=== PATIENT | female | born 1945 | race Caucasian/White ===

== ENCOUNTER 2025-03-30 12:49 | Outpatient (REF) | payer MEDICARE, SELFPAY ==
--- NOTE | ~2025-03-30 | XR_ITS ---
Examination: CR Xr Lumbar Spine 4v Min Prior: None TECHNIQUE: AP, and lateral: Flexion, neutral, and extension view x-rays of the lumbar spine. FINDINGS: Moderate vascular calcifications are visible in the abdominal aorta and common iliac arteries. There is diffuse osteopenia. There is focal sclerotic lesion in the left S3 segment, likely a bone island. There is 33 degrees dextroscoliosis. T12-L1: Mild disc space narrowing and endplate osteophytes are noted. L1-L2: There is mild to moderate disc space narrowing with endplate osteophytes. L2-L3: There is severe disc space narrowing with endplate sclerosis and osteophytes. Facet joints are sclerotic and narrowed. L3-L4: There is grade 1 retrolisthesis without clear enhancement. There are endplate osteophytes. There is decreased retrolisthesis during extension. However, the underlying scoliosis moderately limits evaluation. L4-L5: There is mild facet sclerosis. L5-S1: There is facet sclerosis and osteophytes. XR/XR lumbar spine 4V min IMPRESSION: Moderate dextroscoliosis and degenerative disc disease with facet osteoarthritis. L3-4 demonstrates grade 1 retrolisthesis with possible instability. Comparison between flexion and extension is limited due to the patient's moderate scoliosis. Electronically signed by: Jian Sigala MD 03/30/2025 02:10 PM [facility]
--- OUTSIDE RECORDS SUMMARY | 2025-03-30 21:04 | XMS_ITS | Encounter Summary ---
Author Organization [facility] Address [address] [place] [address] Phone Care Team Providers Care Men'S Leather Dress Belt Maker Name Role Phone Jose Glover MD Primary Care Provider [phone] Encounter Details Date Type Department Care Team (Late st Contact Info) Description 02/17/2017 Ancillary Orders [facility] Orthopedics & Sports Medicine [address] [place] [address] Elsa Kirkland PA-C [address] [place] [address] Orthopedics & Sports Medicine, [place] [address] Social History Tobacco Use Types Packs/Day Years Used Date Smoking Tobacco: Never Assessed Comments Unknown Sex and Gender Information Value Date Recorded Sex Assigned at Not on file Legal Sex Female 7:33 PM EST Gender Identity Not on file Sexual Orientation Not on file documented as of this encounter Plan of Treatment Upcoming Encounters Date Type Department Care Team (Late st Contact Info) Description 10/18/2024 Procedure Pass [address] [address] 08/31/2025 11:00 AM EDT Appointment [address] [address] Jose Glover MD [address] [place] [address] documented as of this encounter Visit Diagnoses Not on filedocumented in this encounter Care Teams Men'S Leather Dress Belt Maker Relationship Specialty Start Date End Date Jose Glover MD [email or web address] PCP - General 10/19/13 documented as of this encounter Additional Source Comments The information contained in this document represents components of the legal health record. It is not the complete legal health record.[facility]
--- OUTSIDE RECORDS SUMMARY | 2025-03-30 21:04 | XMS_ITS | Encounter Summary ---
Author Organization [facility] Address [address] [place] [address] Phone Care Team Providers Care Retread Technician Name Role Phone Jose Glover MD Primary Care Provider [phone] Encounter Details Date Type Department Care Team (Late Contact Info) Description 09/22/2017 Ancillary Orders Virtual Department [address] [place] [address] Jose Glover MD [address] [place] [address] Breast screening Social History Tobacco Use Types Packs/Day Years Used Date Smoking Tobacco: Former Cigarettes 1 1 963 - 1987 Smokeless Tobacco: Never Alcohol Use Standard Drinks/Week Comments No 0 (1 standard drink = 0.6 oz pur e alcohol) Comments Unknown Sex and Gender Information Value Date Recorded Sex Assigned at Not on file Legal Sex Female 7:33 PM EST Gender Identity Not on file Sexual Orientation Not on file documented as of this encounter Plan of Treatment Upcoming Encounters Date Type Department Care Team (Late Contact Info) Description 10/18/2024 Procedure Pass [address] [address] 08/31/2025 11:00 AM EDT Appointment [address] [address] Jose Glover MD [address] [place] [address] [phone] documented as of this encounter Results * BI MAMMOGRAM SCREENING WITH TOMOSYNTHESIS WITH CAD (BILATERAL) (10/23/2017 12:58 PM EDT) Anatomical Region Laterality Modality Breast Left, Breast Right, Breast Bilateral Bila teral Mammography 10/23/2017 1:05 PM EDT Impressions 10/23/2017 1:08 PM EDT Stable appearance relative to prior imaging. No findings suggestive of malignancy are seen. BI-RADS CATEGORY: 2 - Benign finding. DENSITY: There are scattered fibroglandular densities. POS - [id number] Narrative 10/23/2017 1:08 PM EDT Full-field digital mammography is obtained with computer-aided detection. Comparison with prior imaging from 10/07/2016 is made with older imaging dating back as far as 02/15/2011 also reviewed. There is scattered fibroglandular density evident in the breasts. In addition to 2-D C view imaging, tomosynthesis images are obtained in two projections of each breast. There is a small intramammary lymph node in the upper outer left breast. This is unchanged.. No dominant soft tissue mass of concern, suspicious cluster of calcifications, significant interval skin changes, or architectural distortion is identified. Procedure Note Wilder Kimball MD - 10/23/2017 Full-field digital mammography is obtained with computer-aided detection.Comparison with prior imaging from 10/07/2016 is made with older imagingdating back as far as 02/15/2011 also reviewed. There is scattered fibroglandular density evident in the breasts. Inaddition to 2-D C view imaging, tomosynthesis images are obtained in twoprojections of each breast. There is a small intramammary lymph node in the upper outer left breast.This is unchanged.. No dominant soft tissue mass of concern, suspiciouscluster of calcifications, significant interval skin changes, orarchitectural distortion is identified. IMPRESSION: Stable appearance relative to prior imaging. No findings suggestive ofmalignancy are seen. BI-RADS CATEGORY: 2 - Benign finding. DENSITY: There are scattered fibroglandular densities. POS - [id number] Jose Glover MD IMG MG EXAMS Final Result documented in this encounter Visit Diagnoses Diagnosis Breast screening Breast screening, unspecified Breast screening Breast screening, unspecified documented in this encounter Care Teams Retread Technician Relationship Specialty Start Date End Date Jose Glover MD PCP - General 10/19/13 documented as of this encounter Additional Source Comments The information contained in this document represents components of the legal health record. It is not the complete legal health record.[facility]
--- OUTSIDE RECORDS SUMMARY | 2025-03-30 21:04 | XMS_ITS | Encounter Summary ---
Author Organization [facility] Address [address] [place] [address] Phone Care Team Providers Care Welder Production Line Arc Name Role Phone Jose Glover MD Primary Care Provider [phone] Encounter Details Date Type Department Care Team (Late st Contact Info) Description 02/17/2017 Ancillary Orders [facility] Orthopedics & Sports Medicine [address] [place] [address] [address] Mor[address] PA-C [address] [place] [address] Orthopedics & Sports Medicine, [facility] [place] [address] [email or web address] Social History Tobacco Use Types Packs/Day Years [...] st Contact Info) Description 10/18/2024 Procedure Pass [address] [address] 08/31/2025 11:00 AM EDT Appointment [address] [address] Jose Glover MD [address] [place] [address] documented as of this encounter Visit Diagnoses Not on filedocumented in this encounter Care Teams Welder Production Line Arc Relationship Specialty Start Date End Date Jose Glover MD [email or web address] PCP - General 10/19/13 documented as of this encounter Additional Source Comments The information contained in this document represents components of the legal health record. It is not the complete legal health record.[facility]
--- OUTSIDE RECORDS SUMMARY | 2025-03-30 21:04 | XMS_ITS | Encounter Summary ---
Author Organization [facility] Address [address] [place] [address] Phone Care Team Providers Care Business Development Specialist Name Role Phone Jose Glover MD Primary Care Provider [phone] Encounter Details Date Type Department Care Team (Late Contact Info) Description 02/17/2017 Ancillary Orders [address] [address] [address] Morillo PA-C [address] [place] [address] Orthopedics & Sports Medicine, [place] [address] [email or web address] Social History Tobacco Use Types Packs/Day Years [...] st Contact Info) Description 10/18/2024 Procedure Pass [address] [address] 08/31/2025 11:00 AM EDT Appointment [address] [address] Jose Glover MD [address] [place] [address] [email or web address] documented as of this encounter Visit Diagnoses Not on filedocumented in this encounter Care Teams Business Development Specialist Relationship Specialty Start Date End Date Jose Glover MD [email or web address] PCP - General 10/19/13 documented as of this encounter Additional Source Comments The information contained in this document represents components of the legal health record. It is not the complete legal health record.[facility]
--- OUTSIDE RECORDS SUMMARY | 2025-03-30 21:04 | XMS_ITS | Encounter Summary ---
Author Organization [facility] Address [address] [place] [address] Phone Care Team Providers Care Facilities Operator Name Role Phone Jose Glover MD Primary Care Provider Encounter Details Date Type Department Care Team (Late Contact Info) Description 02/17/2017 Ancillary Orders [address] [id number] Elsa Kirkland PA-C [address] [place] [address] Orthopedics & Sports Medicine, [facility] [place] [address] Right wrist pain Social History Tobacco Use Types Packs/Day Years [...] st Contact Info) Description 10/18/2024 Procedure Pass [address] [address] 08/31/2025 11:00 AM EDT Appointment [address] [address] Jose Glover MD [address] [place] [address] documented as of this encounter Results * XR WRIST 2 VIEWS (RIGHT) (02/18/2017 10:18 AM EDT) Narrative Leticia Gregory - 02/18/2017 10:19 AM EDT This image report has been auto-finalized and has not been read by a Radiologist. Interpretation has been included in the provider encounter note for this date of service. Elsa Kirkland PA-C IMG XR UPPER EXTREMI TY Final Result documented in this encounter Visit Diagnoses Diagnosis Right wrist pain Pain in joint, forearm Right wrist pain Pain in joint, forearm documented in this encounter Care Teams Facilities Operator Relationship Specialty Start Date End Date Jose Glover MD [email or web address] PCP - General 10/19/13 documented as of this encounter Additional Source Comments The information contained in this document represents components of the legal health record. It is not the complete legal health record.[facility]
--- OUTSIDE RECORDS SUMMARY | 2025-03-30 21:05 | XMS_ITS | Encounter Summary ---
Author Organization [facility] Address [address] [place] [address] Phone Care Team Providers Care Child Development Assistant Name Role Phone Jose Glover MD Primary Care Provider [phone] Encounter Details Date Type Department Care Team (Latest Contact Info) Description 10/18/2024 Transcribe Orders Virtual Department [address] [place] [address] Jose Glover MD [address] [place] [address] [email or web address] Breast screening (Primary Dx) Social History Tobacco Use Types Packs/Day Years Used Date Smoking Tobacco: Former Cigarettes 963 - 1987 Smokeless Tobacco: Never Alcohol Use Standard Drinks/Week Comments No 0 (1 standard drink = 0.6 oz pur e alcohol) Education Answer Date Recorded Are you interested in more education? Not on taniya e 08/15/2022 Are you concerned about learning? Not on file 08/15/2022 No 08/15/2022 No 08/15/2022 Digital Access Answer Date Recorded No 09/16/2022 No 09/16/2022 Reliable internet access at home? Not on file 09/16/2022 Device with a working camera? Not on file Comments No Sex and Gender Information Value Date Recorded Sex Assigned at Not on file Legal Sex Female 7:33 PM EST Gender Identity Not on file Sexual Orientation Not on file documented as of this encounter Plan of Treatment Upcoming Encounters Date Type Department Care Team (Late st Contact Info) Description 10/18/2024 Procedure Pass [facility], [address] [address] 08/31/2025 11:00 AM EDT Appointment [address] [address] Jose Glover MD [address] [place] [phone] [email or web address] Scheduled Orders Name Type Priority Associated Diagnoses Orde r Schedule Mammogram Screening (Bilateral) Imaging Routine Breast screening Expected: 10/18/2024, Expires: 10/18/2026 documented as of this encounter Visit Diagnoses Diagnosis Breast screening- Primary Breast screening, unspecified documented in this encounter Care Teams Child Development Assistant Relationship Specialty Start Date End Date Jose Glover MD PCP - General 10/19/13 documented as of this encounter Additional Source Comments The information contained in this document represents components of the legal health record. It is not the complete legal health record.[facility]
--- OUTSIDE RECORDS SUMMARY | 2025-03-30 21:05 | XMS_ITS | Encounter Summary ---
Author Organization [facility] Address [address] [place] [address] Phone Care Team Providers Care Machine Stripper Name Role Phone Jose Glover MD Primary Care Provider [phone] Encounter Details Date Type Department Care Team (Late Contact Info) Description 01/03/2025 Transcribe Orders [facility] Department [address] [place] [address] Jose Glover MD [address] [place] [phone] [email or web address] Social History Tobacco Use Types Packs/Day Years Used Date Smoking Tobacco: Former Cigarettes 1 15 05 963 - 1987 Smokeless Tobacco: Never Alcohol [...] (Late Contact Info) Description 10/18/2024 Procedure Pass [facility], Mammography- [address] [address] 08/31/2025 11:00 AM EDT Appointment [facility], Mammography- [address] [address] Jose Glover MD [address] [place] [phone] documented as of this encounter Visit Diagnoses Not on filedocumented in this encounter Care Teams Machine Stripper Relationship Specialty Start Date End Date Jose Glover MD [email or web address] PCP - General 10/19/13 documented as of this encounter Additional Source Comments The information contained in this document represents components of the legal health record. It is not the complete legal health record.[facility]
--- OUTSIDE RECORDS SUMMARY | 2025-03-30 21:05 | XMS_ITS | Encounter Summary ---
Author Organization [facility] Address [address] [place] [address] Phone Care Team Providers Care Remote Sensing Advisor Name Role Phone Jose Glover MD Primary Care Provider Encounter Details Date Type Department Care Team (Late Contact Info) Description 09/21/2018 Ancillary Orders Virtual Department [address] [place] [address] Jose Glover MD [address] [place] [address] Breast screening Social History Tobacco Use Types Packs/Day Years Used Date Smoking Tobacco: Former Cigarettes 1 1 963 - 1987 Smokeless Tobacco: Never Alcohol Use Standard Drinks/Week Comments No 0 (1 standard drink = 0.6 oz pur e alcohol) Comments No Sex and Gender Information Value Date Recorded Sex Assigned at Not on file Legal Sex Female 7:33 PM EST Gender Identity Not on file Sexual Orientation Not on file documented as of this encounter Plan of Treatment Upcoming Encounters Date Type Department Care Team (Late Contact Info) Description 10/18/2024 Procedure Pass [address] [address] 08/31/2025 11:00 AM EDT Appointment [address] [address] Jose Glover MD [address] [place] [address] [phone] documented as of this encounter Results * BI MAMMOGRAM SCREENING WITH TOMOSYNTHESIS WITH CAD (BILATERAL) (10/27/2018 11:09 AM EDT) Anatomical Region Laterality Modality Breast Left, Breast Right, Breast Bilateral Bila teral Mammography 10/27/2018 4:27 PM EDT Impressions 10/27/2018 4:35 PM EDT BILATERAL BREASTS: Negative, no evidence of malignancy. Normal interval follow- up is recommended in 12 months. Bi-RADS: BI-RADS CATEGORY: 1 - Negative. DENSITY: There are scattered fibroglandular densities. POS - [id number] Narrative 10/27/2018 4:35 PM EDT STUDY: Bilateral screening mammography with tomosynthesis and CAD TECHNIQUE: Bilateral full-field digital screening mammography is obtained and read in conjunction with computer-aided detection. Tomosynthesis as well as 2-D C view imaging were obtained. COMPARISON: Comparison made to multiple prior, most recent October 23, 2017, and most remote February 19, 2012. BREAST COMPOSITION: There are scattered areas of fibroglandular density BILATERAL BREASTS: No significant masses, calcifications or other abnormalities are seen. Procedure Note Roseann Jackson MD - 10/27/2018 STUDY: Bilateral screening mammography with tomosynthesis and CAD TECHNIQUE: Bilateral full-field digital screening mammography is obtainedand read in conjunction with computer-aided detection. Tomosynthesis aswell as 2-D C view imaging were obtained. COMPARISON: Comparison made to multiple prior, most recent October 23, 2017,and most remote February 19, 2012. BREAST COMPOSITION: There are scattered areas of fibroglandulardensity BILATERAL BREASTS: No significant masses, calcifications or otherabnormalities are seen. IMPRESSION: BILATERAL BREASTS: Negative, no evidence of malignancy. Normal intervalfollow-up is recommended in 12 months. Bi-RADS: BI-RADS CATEGORY: 1 - Negative. DENSITY: There are scattered fibroglandular densities. POS - [id number] Jose Glover MD IMG MG EXAMS Final Result documented in this encounter Visit Diagnoses Diagnosis Breast screening Breast screening, unspecified Breast screening Breast screening, unspecified documented in this encounter Care Teams Remote Sensing Advisor Relationship Specialty Start Date End Date Jose Glover MD [email or web address] PCP - General 10/19/13 documented as of this encounter Additional Source Comments The information contained in this document represents components of the legal health record. It is not the complete legal health record.[facility]
--- OUTSIDE RECORDS SUMMARY | 2025-03-30 21:05 | XMS_ITS | Clinical Summary ---
Author Organization [facility] Address [address] [place] [address] Phone Care Team Providers Care Chief Contract Officer Name Role Phone Jose Glover MD Primary Care Provider [phone] Allergies Active Allergy Reactions Criticality Noted Date Comments Hydroxychloroquine Thrombocytopenia High 02/18/2017 Medications sulfaSALAzine (AZULFIDINE) 500 mg tablet Take 2 twice aday Active folic acid 5 mg/mL injection Acti ve hydroCHLOROthia zide (HYDRODIURIL) 12.5 MG tablet Activ e lisinopril (PRINIVIL,ZESTR IL) 2.5 MG tablet Active methotrexate 2.5 MG Oral tablet Active leflunomide (ARAVA) 10 MG tabletIndicatio ns:rheumatoid arthritis Take 10 mg by mouth daily. Indications: Rheumatoid Arthritis Active PREDNISONE ORAL Take by mouth. Active Active Problems Problem Noted Date Diagnosed Date Rheumatoid arthritis 02/07/2012 Overview (06/11/2014): Rheumatoid arthritis Neutropenia 02/07/2012 Overview (06/11/2014): Neutropenia Osteopenia 02/07/2012 Overview (06/11/2014): Osteopenia Encounters Date Type Department Care Team Description 01/10/2025 11:00 AM EDT Office Visit [facility] [address] [place] [address] [phone] Gustavo Paulson MD Goldberg, Jessica Beth, PT Weakness (Primary Dx) 01/03/2025 1:48 PM EDT - 01/03/2025 11:59 PM EDT Hospital Encounter [facility], X-Ray - [facility] [address] [place] [address] Gustavo Paulson MD Discharge Disposition: Home or Self Care 01/03/2025 11:00 AM EDT Office Visit [facility] [address] [place] [address] Gustavo Paulson MD Goldberg, Mami Gibbons, PT Weakness (Primary Dx) 01/03/2025 Transcribe Orders Virtual Department [address] [place] [address] Gustavo Paulson MD Right hip pain (Primary Dx); Other rheumatoid arthritis with rheumatoid factor of multiple sites 01/03/2025 Transcribe Orders Virtual Department [address] [place] [address] Gustavo Paulson MD Right hip pain (Primary Dx); Other rheumatoid arthritis with rheumatoid factor of multiple sites 01/03/2025 Transcribe Orders Virtual Department [address] [place] [address] Jose Glover MD from Last 3 Months Family History Medical History Relation Comments Sudden cardiac Mother Breast cancer Paternal Aunt Relation Status Comments Brother Alive Father Mother Paternal Aunt Social History Tobacco Use Types Packs/Day Years Used Date Smoking Tobacco: Former Cigarettes 1 25 1 - 1987 Smokeless Tobacco: Never Tobacco Cessation:Counseling Given: No Alcohol Use Standard Drinks/Week Comments No 0 [...] on file Sexual Orientation Not on file Last Filed Vital Signs Vital Sign Reading Time Taken Comments Blood Pressure 156/72 02/07/2012 2:44 PM EDT Pulse 83 02/07/2012 2:44 PM EDT Temperature 37 C (98.6 F) 02/07/2012 2:44 PM EDT Respiratory Rate 16 02/07/2012 2:44 PM EDT Oxygen Saturation - - Inhaled Oxygen Concentration - - Weight 78 kg (172 lb) 03/11/2017 10:00 AM EST Height 177.8 cm (5' 10 ) 03/11/2017 10:00 AM EST Body Mass Index 24.68 03/11/2017 10:00 AM EST Plan of Treatment Upcoming Encounters Date Type Department Care Team (Late st Contact Info) Description 10/18/2024 Procedure Pass [address] [address] 08/31/2025 11:00 AM EDT Appointment [address] [address] Jose Glover MD [address] [place] [phone] [email or web address] Health Maintenance Due Date Last Done Comments CREATININE LEVEL 1944 LIPID PANEL 1944 POTASSIUM LEVEL 1944 DEPRESSION SCREENING 1956 SMOKING Hx and SMOKELESS TOBACCO SCREENING 1957 ZOSTER VACCINES (1 of 2) 12/30/1963 OSTEOPOROSIS SCREENING INITIAL (ONE-TIME) 2009 RSV VACCINE (1 - 1-dose 75+ series) 12/30/2019 COVID-19 VACCINE (3 - Pfizer risk series) 02/05/2021 01/08/2021, 12/18/2020 Adult Td,Tdap Booster 09/15/2024 09/15/2014 INFLUENZA VACCINE (#1) 2024 , 02/01/2020, 02/15/2019, Additional history exists PNEUMOCOCCAL VACCINES (50+ years) Completed 10/29/2016, 02/17/2015 HEPATITIS A VACCINES Aged Out No long er eligible based on patient's age to complete this topic HIB VACCINES Aged Out No longer eligi ble based on patient's age to complete this topic MENINGOCOCCAL VACCINES (ACWY) Aged Out No longer eligible based on patient's age to complete this topic MENINGOCOCCAL VACCINES (B) Aged Out N o longer eligible based on patient's age to complete this topic Medical Devices Not on file Procedures Procedure Name Priority Date/Time Associated Diagnosis Comments XR HIP 2 VW RIGHT PLUS PELVIS Routine 01/03/2025 2:13 PM EDT Right hip pain Other rheumatoid arthritis with rheumatoid factor of multiple sites from Last 3 Months Results * XR HIP 2 VW RIGHT PLUS PELVIS (01/03/2025 2:13 PM EDT) Anatomical Region Laterality Modality Hip Right Computed Radiogr aphy 01/04/2025 9:36 AM EDT Impressions 01/04/2025 9:37 AM EDT Mild bilateral hip degenerative changes. Dedicated views of the right hip demonstrate mild osteophyte formation and mild joint space narrowing. No evidence of acute, displaced fracture or dislocation. Mild degenerative changes elsewhere within the pelvis. Small ill-defined sclerotic focus within the left central sacrum. Prominent degenerative changes within the lower lumbar spine. Narrative 01/04/2025 9:37 AM EDT XR HIP 2 VW RIGHT PLUS PELVIS Referring clinician's provided indication for this examination in [facility]: Pain; Difficulty walking x3 weeks, R hip pain. No help with Nsaids. Pt has RA COMPARISON: None Procedure Note Mau Daniels MD - 01/04/2025 XR HIP 2 VW RIGHT PLUS PELVIS Referring clinician's provided indication for this examination in [facility]:Pain; Difficulty walking x3 weeks, R hip pain. No help with Nsaids. Pt hasRA COMPARISON: None IMPRESSION: Mild bilateral hip degenerative changes. Dedicated views of the right hipdemonstrate mild osteophyte formation and mild joint space narrowing. Noevidence of acute, displaced fracture or dislocation. Mild degenerativechanges elsewhere within the pelvis. Small ill-defined sclerotic focuswithin the left central sacrum. Prominent degenerative changes within thelower lumbar spine. Gustavo Paulson MD IMG XR PELVIS Final Re sult from Last 3 Months Insurance MEDICARE PART A & B MEDICARE SUPPLEMENT MEDICARE PART A & B MEDICARE SUPPLEMENT MEDICARE PART A & B [facility] MEDICARE SUPPLEMENT MEDICARE PART A & B Member Subscriber Plan / Payer (Ef fective 2009-Present) Name:Margo Harvey Member ID:[id number] Relation to Subscriber:Self Name:Margo Harvey Subscriber ID:[id number] Payer ID:[id number] Group ID:Not on file Type:Medicare Address: [employer] [address] [place] [id number] [facility] MEDICARE SUPPLEMENT MEDICARE PART A & B [facility] MEDICARE SUPPLEMENT MEDICARE PART A & B Member Subscriber Plan / Payer (Ef fective 2009-Present) Name:Margo Harvey Member ID:[id number] Relation to Subscriber:Self Name:Margo Harvey Subscriber ID:[id number] Payer ID:[id number] Group ID:Not on file Type:Medicare Address: [employer] [address] MEDICARE SUPPLEMENT MEDICARE PART A & B [facility] MEDICARE SUPPLEMENT [facility] Address: [facility] CLAIMS [employer] [address] [place] [phone] MEDICARE PART A & B MEDICARE SUPPLEMENT MEDICARE PART A & B MEDICARE SUPPLEMENT Care Teams Chief Contract Officer Relationship Specialty Start Date End Date Jose Glover MD PCP - General 10/19/13 Additional Source Comments The information contained in this document represents components of the legal health record. It is not the complete legal health record.[facility]
--- OUTSIDE RECORDS SUMMARY | 2025-03-30 21:05 | XMS_ITS | Encounter Summary ---
Author Organization [facility] Address [address] [place] [address] Phone Care Team Providers Care Resource Director Name Role Phone Jose Glover MD Primary Care Provider [phone] Encounter Details Date Type Department Care Team (Late st Contact Info) Description 03/07/2017 Ancillary Orders [address] [address] Meme Edgar MD [address] [place] [address] Orthopedics & Sports Medicine, [place] [address] [email or web address] Right wrist pain Social History Tobacco Use Types Packs/Day Years Used Date Smoking Tobacco: Former Cigarettes [id number] Smokeless Tobacco: Never Alcohol Use Standard Drinks/Week [...] st Contact Info) Description 10/18/2024 Procedure Pass [address] [address] 08/31/2025 11:00 AM EDT Appointment [address] [address] Jose Glover MD [address] [place] [address] [phone] [email or web address] documented as of this encounter Results * XR WRIST 2 VIEWS (RIGHT) (03/11/2017 10:08 AM EST) Narrative Vivien Crowley - 03/11/2017 10:08 AM EST This image report has been auto-finalized and has not been read by a Radiologist. Interpretation has been included in the provider encounter note for this date of service. us Meme Edgar MD IMG XR UPPER EXTREMITY Final Result documented in this encounter Visit Diagnoses Diagnosis Right wrist pain Pain in joint, forearm Right wrist pain Pain in joint, forearm documented in this encounter Care Teams Resource Director Relationship Specialty Start Date End Date Jose Glover MD [email or web address] PCP - General 10/19/13 documented as of this encounter Additional Source Comments The information contained in this document represents components of the legal health record. It is not the complete legal health record.[facility]
--- OUTSIDE RECORDS SUMMARY | 2025-03-30 21:05 | XMS_ITS | Encounter Summary ---
Author Organization [facility] Address [address] [place] [address] Phone Care Team Providers Care Superintendent Warehouse Name Role Phone Jose Glover MD Primary Care Provider [phone] Encounter Details Date Type Department Care Team (Late Contact Info) Description 10/10/2020 Procedure Pass [address] [address] Social History Tobacco Use Types Packs/Day Years [...] st Contact Info) Description 10/18/2024 Procedure Pass [address] [address] 08/31/2025 11:00 AM EDT Appointment [address] [address] Jose Glover MD [address] [place] [phone] [email or web address] documented as of this encounter Visit Diagnoses Not on filedocumented in this encounter Care Teams Superintendent Warehouse Relationship Specialty Start Date End Date Jose Glover MD [email or web address] PCP - General 10/19/13 documented as of this encounter Additional Source Comments The information contained in this document represents components of the legal health record. It is not the complete legal health record.[facility]
--- OUTSIDE RECORDS SUMMARY | 2025-03-30 21:05 | XMS_ITS | Encounter Summary ---
Author Organization [facility] Address [address] [place] [address] Phone Care Team Providers Care Engineering Technical Writer Name Role Phone Jose Glover MD Primary Care Provider [phone] Encounter Details Date Type Department Care Team (Latest Contact Info) Description 10/16/2022 Transcribe Orders Virtual Department [address] [place] [address] Jose Glover MD [address] [place] [phone] [email or web address] Breast screening (Primary Dx) Social History [...] st Contact Info) Description 10/18/2024 Procedure Pass [address] [address] 08/31/2025 11:00 AM EDT Appointment [address] [address] Jose Glover MD [address] [place] [phone] [email or web address] documented as of this encounter Results * BI MAMMOGRAM SCREENING WITH TOMOSYNTHESIS WITH CAD (BILATERAL) (11/14/2022 10:32 AM EDT) Anatomical Region Laterality Modality Breast Left, Breast Right, Breast Bilateral Bila teral Mammography 11/15/2022 5:48 PM EDT Impressions 11/15/2022 5:50 PM EDT No findings suspicious for malignancy are identified. In the absence of a worrisome palpable abnormality, annual screening mammography is recommended. BI-RADS CATEGORY: 1 - Negative. DENSITY: There are scattered fibroglandular densities. Narrative 11/15/2022 5:50 PM EDT AVAILABLE COMPARISON: 11/13/2021 through 10/25/2003 Bilateral 3-D tomosynthesis with 2-D reconstructions in the CC and MLO projection. Computer-aided detection system was utilized. No new mass, asymmetry, architectural distortion or suspicious calcifications have become apparent in either breast. Procedure Note Merrick Cavazos MD - 11/15/2022 AVAILABLE COMPARISON: 11/13/2021 through 10/25/2003 Bilateral 3-D tomosynthesis with 2-D reconstructions in the CC and MLOprojection. Computer-aided detection system was utilized. No new mass, asymmetry, architectural distortion or suspiciouscalcifications have become apparent in either breast. IMPRESSION: No findings suspicious for malignancy are identified. In the absence of aworrisome palpable abnormality, annual screening mammography isrecommended. BI-RADS CATEGORY: 1 - Negative. DENSITY: There are scattered fibroglandular densities. Jose Glover MD IMG MG EXAMS Final Result documented in this encounter Visit Diagnoses Diagnosis Breast screening- Primary Breast screening, unspecified Breast screening Breast screening, unspecified documented in this encounter Care Teams Engineering Technical Writer Relationship Specialty Start Date End Date Jose Glover MD PCP - General 10/19/13 documented as of this encounter Additional Source Comments The information contained in this document represents components of the legal health record. It is not the complete legal health record.[facility]
--- OUTSIDE RECORDS SUMMARY | 2025-03-30 21:05 | XMS_ITS | Encounter Summary ---
Author Organization [facility] Address [address] [place] [address] Phone Care Team Providers Care Insurance Sales Producer Name Role Phone Jose Glover MD Primary Care Provider [phone] Encounter Details Date Type Department Care Team (Late Contact Info) Description 09/22/2023 Procedure Pass [address] [address] Social History Tobacco Use Types Packs/Day Years Used Date Smoking Tobacco: Former Cigarettes 1 15 05 [id number] Smokeless Tobacco: Never Alcohol Use Standard [...] (Late Contact Info) Description 10/18/2024 Procedure Pass [address] [address] 08/31/2025 11:00 AM EDT Appointment [address] [place] [address] Jose Glover MD [address] [place] [phone] [email or web address] documented as of this encounter Visit Diagnoses Not on filedocumented in this encounter Care Teams Insurance Sales Producer Relationship Specialty Start Date End Date Jose Glover MD [email or web address] PCP - General 10/19/13 documented as of this encounter Additional Source Comments The information contained in this document represents components of the legal health record. It is not the complete legal health record.[facility]
--- OUTSIDE RECORDS SUMMARY | 2025-03-30 21:05 | XMS_ITS | Encounter Summary ---
Author Organization [facility] Address [address] [place] [address] Phone Care Team Providers Care Clinical Laboratory Technologist Name Role Phone Jose Glover MD Primary Care Provider [phone] Encounter Details Date Type Department Care Team (Late Contact Info) Description 08/31/2019 Ancillary Orders Virtual Department [address] [place] [address] Jose Glover MD [address] [place] [address] Breast screening Social History Tobacco Use Types [...] (Late Contact Info) Description 10/18/2024 Procedure Pass [address] [address] 08/31/2025 11:00 AM EDT Appointment [address] [address] Jose Glover MD [address] [place] [address] [phone] documented as of this encounter Results * BI MAMMOGRAM SCREENING WITH TOMOSYNTHESIS WITH CAD (BILATERAL) (11/03/2019 10:53 AM EDT) Anatomical Region Laterality Modality Breast Left, Breast Right, Breast Bilateral Bila teral Mammography 11/03/2019 6:20 PM EDT Impressions 11/03/2019 6:24 PM EDT BILATERAL BREASTS: Negative, no evidence of malignancy. Normal interval follow- up is recommended in 12 months. Bi-RADS: BI-RADS CATEGORY: 1 - Negative. DENSITY: There are scattered fibroglandular densities. Narrative 11/03/2019 6:24 PM EDT STUDY: Bilateral screening mammography with tomosynthesis and CAD TECHNIQUE: Bilateral full-field digital screening mammography is obtained and read in conjunction with computer-aided detection. Tomosynthesis as well as 2-D C view imaging were obtained. COMPARISON: Comparison made to multiple prior, most recent October 27, 2018, and most remote February 19, 2013. BREAST COMPOSITION: There are scattered areas of fibroglandular density BILATERAL BREASTS: No significant masses, calcifications or other abnormalities are seen. Procedure Note Roseann Jackson MD - 11/03/2019 STUDY: Bilateral screening mammography with tomosynthesis and CAD TECHNIQUE: Bilateral full-field digital screening mammography is obtainedand read in conjunction with computer-aided detection. Tomosynthesis aswell as 2-D C view imaging were obtained. COMPARISON: Comparison made to multiple prior, most recent October 27, 2018,and most remote February 19, 2013. BREAST COMPOSITION: There are scattered areas of [...] unspecified documented in this encounter Care Teams Clinical Laboratory Technologist Relationship Specialty Start Date End Date Jose Glover MD PCP - General 10/19/13 documented as of this encounter Additional Source Comments The information contained in this document represents components of the legal health record. It is not the complete legal health record.[facility]
--- OUTSIDE RECORDS SUMMARY | 2025-03-30 21:05 | XMS_ITS | Encounter Summary ---
Author Organization [facility] Address [address] [place] [address] Phone Care Team Providers Care Die Maker Electronic Name Role Phone Jose Glover MD Primary Care Provider [phone] Encounter Details Date Type Department Care Team (Late Contact Info) Description 03/07/2017 Ancillary Orders [facility] Medicine [address] [place] [address] Meme Edgar MD [address] [place] [address] Orthopedics & Sports Medicine, [place] [address] [email or web address] Social History Tobacco Use Types Packs/Day Years Used Date Smoking Tobacco: Former Cigarettes 96 - 1987 Smokeless Tobacco: Never Alcohol Use [...] st Contact Info) Description 10/18/2024 Procedure Pass [address] [address] 08/31/2025 11:00 AM EDT Appointment [address] [address] Jose Glover MD [address] [place] [address] [email or web address] documented as of this encounter Visit Diagnoses Not on filedocumented in this encounter Care Teams Die Maker Electronic Relationship Specialty Start Date End Date Jose Glover MD [email or web address] PCP - General 10/19/13 documented as of this encounter Additional Source Comments The information contained in this document represents components of the legal health record. It is not the complete legal health record.[facility]
--- OUTSIDE RECORDS SUMMARY | 2025-03-30 21:05 | XMS_ITS | Encounter Summary ---
Author Organization [facility] Address [address] [place] [address] Phone Care Team Providers Care Cyanide Pot Hardener Name Role Phone Jose Glover MD Primary Care Provider [phone] Encounter Details Date Type Department Care Team (Late Contact Info) Description 10/16/2022 Procedure Pass [address] [address] Social History Tobacco Use Types Packs/Day Years [...] (Late Contact Info) Description 10/18/2024 Procedure Pass [address] [address] 08/31/2025 11:00 AM EDT Appointment [address] [place] [address] Jose Glover MD [address] [place] [phone] [email or web address] documented as of this encounter Visit Diagnoses Not on filedocumented in this encounter Care Teams Cyanide Pot Hardener Relationship Specialty Start Date End Date Jose Glover MD [email or web address] PCP - General 10/19/13 documented as of this encounter Additional Source Comments The information contained in this document represents components of the legal health record. It is not the complete legal health record.[facility]
--- OUTSIDE RECORDS SUMMARY | 2025-03-30 21:06 | XMS_ITS | Encounter Summary ---
Author Organization [facility] Address [address] [place] [address] Phone Care Team Providers Care Relay Telegrapher Name Role Phone Jose Glover MD Primary Care Provider [phone] Encounter Details Date Type Department Care Team (Late Contact Info) Description 10/10/2020 Ancillary Orders Virtual Department [address] [place] [address] Jose Glover MD [address] [place] [address] Breast screening Social History Tobacco Use Types [...] (Late Contact Info) Description 10/18/2024 Procedure Pass [address] [address] 08/31/2025 11:00 AM EDT Appointment [address] [address] Jose Glover MD [address] [place] [address] [phone] (FaxAlex documented as of this encounter Results * BI MAMMOGRAM SCREENING WITH TOMOSYNTHESIS WITH CAD (BILATERAL) (11/08/2020 10:31 AM EDT) Anatomical Region Laterality Modality Breast Left, Breast Right, Breast Bilateral Bila teral Mammography 11/08/2020 10:2 4 AM EDT Impressions 11/08/2020 10:51 AM EDT No mammographic evidence of malignancy. Recommend routine annual surveillance. BI-RADS CATEGORY: 1 - Negative. DENSITY: There are scattered fibroglandular densities. Narrative 11/08/2020 10:51 AM EDT 74-year-old female with no current breast symptoms. Comparison made to previous on 11/03/2019 and as far back as 08/09/2014. Interpretation made in conjunction with computer-aided detection and tomosynthesis. There are scattered areas of fibroglandular density. There are no suspicious masses, areas of architectural distortion, or suspicious clusters of microcalcifications. Procedure Note Beltran Solo MD - 11/08/2020 74-year-old female with no current breast symptoms. Comparison made toprevious on 11/03/2019 and as far back as 08/09/2014. Interpretation madein conjunction with computer-aided detection and tomosynthesis. There are scattered areas of fibroglandular density. There are no suspicious masses, areas of architectural distortion, orsuspicious clusters of microcalcifications. IMPRESSION: No mammographic evidence of malignancy. Recommend routine annualsurveillance. BI-RADS CATEGORY: 1 - Negative. DENSITY: There are scattered fibroglandular densities. Jose Glover MD IMG MG EXAMS Final Result documented in this encounter Visit Diagnoses Diagnosis Breast screening Breast screening, unspecified Breast screening Breast screening, unspecified documented in this encounter Care Teams Relay Telegrapher Relationship Specialty Start Date End Date Jose Glover MD [phone] (work) [email or web address] PCP - General 10/19/13 documented as of this encounter Additional Source Comments The information contained in this document represents components of the legal health record. It is not the complete legal health record.[facility]
--- OUTSIDE RECORDS SUMMARY | 2025-03-30 21:06 | XMS_ITS | Encounter Summary ---
Author Organization [facility] Address [address] [place] [address] Phone Care Team Providers Care Admin Asst Name Role Phone Jose Glover MD Primary Care Provider [phone] Encounter Details Date Type Department Care Team (Late Contact Info) Description 10/02/2021 Procedure Pass [address] [address] Social History Tobacco Use Types Packs/Day Years [...] st Contact Info) Description 10/18/2024 Procedure Pass [address] [address] 08/31/2025 11:00 AM EDT Appointment [address] [address] Jose Glover MD [address] [place] [id number] [email or web address] documented as of this encounter Visit Diagnoses Not on filedocumented in this encounter Care Teams Admin Asst Relationship Specialty Start Date End Date Jose Glover MD [email or web address] PCP - General 10/19/13 documented as of this encounter Additional Source Comments The information contained in this document represents components of the legal health record. It is not the complete legal health record.[facility]
== END 2025-03-30 12:50 | disposition home or self-care (01) ==
LOC: HO.HOSX 12:49
PROVIDERS: PCP Family Medicine; Visit Provider Neurological Surgery
DX: M48.061 Spinal stenosis, lumbar region without neurogenic claudication (principal); M41.56 Other secondary scoliosis, lumbar region
CPT/HCPCS: 72110; 99202

== ENCOUNTER 2025-03-30 12:49 | Outpatient (AMB) | payer MEDICARE, SELFPAY ==
[2025-03-30 13:01] VITALS: BMI 25.8
--- NOTE | 2025-03-30 13:01 | A.SPINEOV_ITS ---
Vital Signs 03/30/25 13:01 Height 5 ft 10 in Weight 180 lb BMI 25.8 Intake Visit Reasons: LBP Intake Note: Mrs. Harvey is here today c/o low back pain that radiates to the right leg, hip and groin. MRI done at [facility]. Industrial Engineering Technologist Required: No Allergies No Known Allergies Allergy (Verified 03/30/25 13:02) Physical Exam Vital Signs: BMI result Body Mass Index 25.8 Assessment & Plan Assessment & Plan (1) Scoliosis of lumbar region due to degenerative disease of spine in adult: Code(s): M41.56 - Other secondary scoliosis, lumbar region Category: Medical (2) Neuroforaminal stenosis of lumbar spine: Code(s): M48.061 - Spinal stenosis, lumbar region without neurogenic claudication Category: Medical Plan Dear colleague Thank you for referring Margo Harvey to the office today with a chief complaint of right leg pain and weakness. HPI: This 79-year-old previous very active female developed severe pain radiating down her right leg in August of this year. The pain radiates to the outside of her hip down to her outside of the ankle and recently also to the medial side of her ankle. The pain prevents her from walking or standing any length of time. Laying down is the best position. She also noticed that she is walking differently with weakness of her right leg and a drop foot on the right side. No sensory changes. She tried epidural steroid injections, tramadol and a course of physical therapy with the pain and neurological deficits are persistent. The following conservative treatment options were tried without success antiinflammatories, tylenol, physician guided home exercise plan, cortisone ots PMH: Rheumatoid arthritis Medications: Methotrexate some, sulfasalazine, prednisone, lisinopril, hydrochlorothiazide Allergies: Plaquenil causes low neutrophils Social history: . Retired. As stated above she used to be very active in the form of hiking, cough. Physical Exam: Pleasant female. She has a positive Trendelenburg on the right side. She has weakness of the dorsiflexors grade 2 to 3/5 on the right side. No sensory changes. No hyperreflexia. No pathological reflexes. Gait is antalgic with a limp on the right side and the Trendelenburg becomes more visible. Radiological Studies: MRI of the lumbar spine done at [] on 01/24/2025 shows a lumbar degenerative scoliosis with the apex around L2-3 and the convexity towards the right side. There is moderate L4-5 spinal stenosis and severe right L4 and L5 foraminal stenosis due to extraforaminal disc herniations compressing the L4 and L5 nerve roots. Furthermore, there severe left L2 and L3 foraminal stenosis. A standing x-ray today shows mild degenerative scoliosis. Signs of osteoporosis. No instability. Impression/Plan: This patient is suffering from a right L4 and L5 radiculopathy due to extraforaminal disc herniation L4-5 and L5-S1 compressing the L4 and L5 nerve roots. The pain is not improving and she is having significant neurological deficits. Therefore I recommended a decompression of the nerve roots with a diskectomy at these levels through an extra foraminal approach. I explained the procedure possible complications. She is scheduled for 05/19/2024. She will stop her rheumatoid arthritic medications 1 week prior to surgery in attempt to reduce the risk of infection and wound healing problems. She will also get clearance from her technical fellow to discontinue these medications. Thank you for allowing me to participate in your patients care. total time spent was 60 minutes in counseling ,coordination of plan, personal review of imaging, surgical decision making and subsequent plan Kevin Gant MD, PhD Spine Fellowship Trained Neurosurgeon Director, [facility] Orders: Orders XR lumbar spine 4V min Today M41.56 - Other secondary scoliosis, lumbar region, M48.061 - Spinal stenosis, lumbar region without neurogenic claudication Coding Level of Care Code New Pt Level 5 (02816) Diagnoses Scoliosis of lumbar region due to degenerative disease of spine in adult M41.56 Neuroforaminal stenosis of lumbar spine M48.061
== END 2025-03-30 15:08 | disposition home or self-care (01) ==
LOC: HO.HNS 12:49
PROVIDERS: PCP Family Medicine; Visit Provider Neurological Surgery
DX: M48.061 Spinal stenosis, lumbar region without neurogenic claudication (principal); M41.56 Other secondary scoliosis, lumbar region
CPT/HCPCS: 99205

== ENCOUNTER → 2025-03-30 13:37 | Outpatient (BNV) | payer MEDICARE, SELFPAY | PROVIDERS: PCP Family Medicine; Visit Provider Radiology Diagnostic Radiology | DX: M51.369 Other intervertebral disc degeneration, lumbar region without mention of lumbar back pain or lower extremity pain (principal); M41.56 Other secondary scoliosis, lumbar region; M47.816 Spondylosis without myelopathy or radiculopathy, lumbar region | CPT/HCPCS: 72110 ==